=== PATIENT | female | born 1995 | race Caucasian/White ===

== ENCOUNTER 2022-01-10 05:36 | Observation (INO) | payer BC ==
[2022-01-06 15:26] VITALS: BMI 28.3
[2022-01-10] MEDS ORDERED: ceFAZolin Sodium 1 GM/Dextrose 50 ML BAG ONE (07:05)
[2022-01-10] MEDS ORDERED: Lidocaine 1% w/Epinephrine 1:100K 20 ML VIAL ONE (07:05)
[2022-01-10] MEDS ORDERED: Meperidine HCl/PF 25 MG/ML VIAL ONE (09:01)
[2022-01-10] MEDS ORDERED: Non-Formulary Medication 1 EACH PO PRN (09:18)
[2022-01-10] MEDS ORDERED: Meperidine HCl/PF 25 MG/ML VIAL SLOW IVP PRN (09:30)
[2022-01-10] MEDS ORDERED: Promethazine HCl 25 MG/ML VIAL IVPB PRN (09:30)
[2022-01-10] MEDS ORDERED: HYDROcodone/Acetaminophen 5/325 mg Tablet PO PRN ×2 (09:30)
[2022-01-10] MEDS ORDERED: Ondansetron PF 4 MG/2 ML Vial IVP PRN ×2 (09:30→14:00)
[2022-01-10] MEDS ORDERED: Fentanyl 100 MCG/2 ML VIAL SLOW IVP PRN (09:30)
[2022-01-10] MEDS ORDERED: Morphine 2 MG/ML VIAL SLOW IVP PRN (14:00)
[2022-01-10] MEDS ORDERED: Acetaminophen/Codeine 30-300mg Tablet PO PRN ×2 (14:00)
[2022-01-10] MEDS ORDERED: Ondansetron ODT 4 MG TAB PO PRN (14:00)
[2022-01-10] MEDS ORDERED: Morphine 4 MG/ML VIAL SLOW IVP PRN (14:15)
[2022-01-11 06:07] VITALS: TEMP 97.8
[2022-01-11 08:08] VITALS: BP 104/79
== END 2022-01-11 09:50 | disposition home or self-care (01) ==
LOC: CSHSDC 05:36 → CSHTELE 13:17
PROVIDERS: ADMIT Otolaryngology Otolaryngic Allergy; ATTEND Otolaryngology Otolaryngic Allergy
PROC: 0GTH0ZZ Resection of Right Thyroid Gland Lobe, Open Approach (ICD-10-PCS; principal; 2022-01-10)
DX: E07.9 Disorder of thyroid, unspecified (principal); J32.9 Chronic sinusitis, unspecified; J34.89 Other specified disorders of nose and nasal sinuses; Z79.899 Other long term (current) drug therapy; Z88.2 Allergy status to sulfonamides; Z20.822 Contact with and (suspected) exposure to COVID-19; Z98.51 Tubal ligation status
CPT/HCPCS: 88307; 88331; 94760; J0690; J2175; J2270

== ENCOUNTER → 2022-03-14 | Day surgery (SDC) | payer BC ==
[2022-03-13 13:01] VITALS: BMI 28.3
[~2022-03-14] MED LIST: CEFAZOLIN 1 GM VIAL ONE; Dexamethasone 4 mg/ml Vial ONE; EPINEPHrine 1 MG/ML AMP ONE; Fentanyl 100 MCG/2 ML VIAL ONE; Glycopyrrolate 0.2 MG/ML 5 ML SYRINGE ONE; HYDROcodone/Acetaminophen 5/325 mg Tablet ONE; Lidocaine 1% (PF) 30 ML VIAL ONE; Lidocaine 1% PF 5 ML VIAL ONE; Midazolam HCl 2 mg/2 ml Vial ONE; Ondansetron PF 4 MG/2 ML Vial ONE; PROPOFOL 20 ML ONE; Rocuronium Bromide 10 MG/ML (10ML VIAL) ONE
== END ==
LOC: CSHSDC 05:40
PROVIDERS: ATTEND Otolaryngology Otolaryngic Allergy
PROC: 0GTK0ZZ Resection of Thyroid Gland, Open Approach (ICD-10-PCS; principal; 2022-03-14)
DX: C73 Malignant neoplasm of thyroid gland (principal); E89.0 Postprocedural hypothyroidism; L81.2 Freckles; D37.01 Neoplasm of uncertain behavior of lip; J32.9 Chronic sinusitis, unspecified; Z88.2 Allergy status to sulfonamides; Z79.899 Other long term (current) drug therapy; Z98.890 Other specified postprocedural states
CPT/HCPCS: 36415; 82310; 83970; 88307; J0171; J0690; J1100; J2001; J2250; J2405; J2704; J3010